=== PATIENT | male | born 1955 ===

== ENCOUNTER 2021-08-07 08:51 | Outpatient (CLI) | payer MEDICARE, OTHER, SELFPAY ==
--- NOTE | 2021-08-07 | ECHO_ITS ---
Patient Info Name: Be Coffman Age: 66 years : 1955 Gender: Male Ht: 68 in Wt: 254 lbs BSA: 2.40 m2 HR: 68 bpm BP: 135 / 92 mmHg Technical Quality: Poor Exam Date: 08/07/2021 9:18 AM Exam Location: [facility] Patient Status: Outpatient Admit Date: 08/07/2021 Staff Ordering Physician: Mauro Garcia DO Big Data Admin: Milan Wyatt RDCS, RT Attending Provider: Mauro Garcia DO Referring Physician: Jose JARVIS; Exam Type: CA echo dop color flow w con Study Info Indications R06.00 - Dyspnea, unspecified Complete two-dimensional, color flow and Doppler transthoracic echocardiogram is performed with contrast to opacify the left ventricle and to improve the deliniation of the left ventricle endocardial borders. Summary 1. Technically suboptimal study due to poor sonographic images. 2. Definity contrast administered improved wall motion interpretation. 3. Left ventricular chamber dimension is mildly enlarged. 4. Left ventricular systolic function is normal, estimated at 55-60%. 5. The left ventricular diastolic function is grade I diastolic dysfunction. 6. E/e' 5 is not elevated. 7. Dilated inferior vena cava with >50% collapse upon inspiration consistent with elevated right atrial pressure, 10 mmHg. Left Ventricle Technically suboptimal study due to poor sonographic images. Definity contrast administered improved wall motion interpretation. E/e' 5 is not elevated. Left ventricular chamber dimension is mildly enlarged. Left ventricular systolic function is normal, estimated at 55-60%. The left ventricular diastolic function is grade I diastolic dysfunction. Right Ventricle Right ventricular systolic function is normal and with normal TAPSE 2.3 cm. Right ventricular chamber dimension is normal. Left Atria Left atrial chamber dimension is normal. Right Atria Right atrial chamber dimension is normal. Aortic Valve The aortic valve is trileaflet. There is no aortic valve stenosis. There is no aortic valve regurgitation. Pulmonic Valve There is no pulmonic regurgitation. Mitral Valve There is no mitral valve stenosis. There is no mitral valve regurgitation. Tricuspid Valve There is no tricuspid valve regurgitation. Pericardium/Pleural There is no pericardial effusion. Inferior Vena Cava Dilated inferior vena cava with >50% collapse upon inspiration consistent with elevated right atrial pressure, 10 mmHg. Aorta The aortic root size at the sinus of Valsalva is normal. Left Ventricular Outflow Tract Name Value Normal LVOT 2D LVOT Diameter 2.21 cm LVOT Doppler LVOT Peak Gradient 3 mmHg LVOT Mean Gradient 2 mmHg LVOT VTI 18.48 cm LVOT VTI/AV VTI Ratio 0.71 LVOT Stroke Volume 70.99 ml LVOT CO 5.04 l/min LVOT CI 2.10 L/min/m2 Mitral Valve Name Value Normal --
[2021-08-07] MEDS: PERFLUTREN LIPID MICROSPHERES 1.5 ML VIAL DILUTED TO 10 ML TOTAL VOLUME IV PUSH (09:15)
[2021-08-07 11:12] LABS: Alanine Aminotransferase 7 U/L (4-50); Alkaline Phosphatase 111 U/L (38-126); Anion Gap 8 mmol/L (8-16); Aspartate Amino Transferase 40 U/L (17-59); Bilirubin,Total 0.6 mg/dL (0.2-1.3); Blood Urea Nitrogen 15 mg/dL (9-20); Calcium 8.7 mg/dL (8.4-10.2); Carbon Dioxide 26 mmol/L (22-30); Chloride 104 mmol/L (98-107); Cholesterol 168 mg/dL (0-200); Estimated Glomerular Filt Rate > 60; Glucose 110 mg/dL (65-110); HDL Direct 43 mg/dL; Sodium 138 mmol/L (137-145); Triglycerides 159 mg/dL (<150)
[2021-08-07 11:23] LABS: LDL Cholesterol Direct 77 mg/dL
== END 2021-08-07 08:52 | disposition home or self-care (01) ==
PROVIDERS: Visit Provider Internal Medicine Cardiovascular Disease
DX: R06.00 Dyspnea, unspecified (principal); E78.5 Hyperlipidemia, unspecified
CPT/HCPCS: 36415; 80053; 80061; C8929; Q9957

== ENCOUNTER 2021-11-09 13:35 | Emergency (ER) | payer MEDICARE, OTHER, SELFPAY ==
[2021-11-09] VITALS (19 sets, daily range): BP systolic 120–146; BP diastolic 75–94; PULSE 61–78; RESP 11–25; TEMP 36.2; O2SAT 98
--- NOTE | ~2021-11-09 | XR_ITS ---
XR chest 2V DATE: 11/09/2021 14:06 INDICATION: Central chest pain. History of sarcoidosis. TECHNIQUE: PA and lateral views COMPARISON: 08/14/2018 AP and lateral chest FINDINGS: Borderline heart size. No pulmonary vascular congestion or pleural effusion or pneumothorax . No pulmonary infiltrate or consolidation. There is chronic moderate elevation of the right diaphrag m. Degenerative spurring of the thoracic spine. IMPRESSION: Chronic moderate elevation right diaphragm No active pulmonary disease Reviewed, dictated and finalized at location A.
--- NOTE | ~2021-11-09 | CT_ITS ---
EXAMINATION: CTA chest PE protocol DATE: 11/09/2021 15:58 INDICATION: cp, sob, elevated dimer TECHNIQUE: Computed tomography angiography (CTA) of the chest was performed with 100 mL Omnipaque-350 intravenous contrast timed to evaluate the pulmonary arteries. Coronal maximum intensity projection 3D-reconstructions were created by the technologist. The dose-length product (DLP) was 833.13 mGy-cm. Automated exposure control and iterative reconstruction technique were employed. COMPARISON: X-ray chest, same date. CT T-spine 08/14/2018. FINDINGS: Study quality: . Pulmonary arteries: No pulmonary emboli detected. Thoracic aorta: Normal. Lung parenchyma and airways: Right upper lung scarring, unchanged. Bibasilar atelectasis. Thoracic inlet, axillae and chest wall: Bilateral gynecomastia. Mediastinum: Normal. Heart and pericardium: Normal. Coronary artery calcifications: Absent. Pleura: Unremarkable. Upper abdomen: No significant finding. Bones: No acute osseous finding. IMPRESSION: No CT evidence of acute pulmonary embolus. Reviewed, dictated and finalized at location K.
--- NOTE | 2021-11-09 13:36 | ECG_ITS ---
Measurements Intervals [place] Rate: 76 P: 21 ME: 145 QRS: -10 QRSD: 101 T: -1 QT: 358 QTc: 404 Interpretive Statements SINUS RHYTHM LOW QRS VOLTAGE IN PRECORDIAL LEADS BORDERLINE ST-T WAVE ABNORMALITY- INFERIOR LEADS BASELINE ARTIFACT- I, II, AVR, AVF BORDERLINE ECG Electronically Signed On 11-09-2021 15:28:29 CDT by Mauro Garcia D.O.
[2021-11-09 14:04] LABS: Basophils Absolute Auto 0.1 K/mm3 (0.0-0.1); Basophils Percent Auto 0.8 % (0.2-1.2); Eosinophils Absolute Auto 0.4 K/mm3 (0-0.3); Eosinophils Percent Auto 5.9 % (0-4.4); Hematocrit 45.5 % (42.0-52.0); Hemoglobin 15.8 g/dL (14.0-18.0); Immature Granulocyte Absolute 0.01 K/mm3 (0.00-0.031); Immature Granulocyte Percent A 0.1 % (0-0.5); Lymphocytes Absolute Auto 0.98 K/mm3 (0.9-3.2); Lymphocytes Percent Auto 13.1 % (18.3-44.2); Mean Corpuscular HGB Conc 34.7 g/dl (32-36); Mean Corpuscular Hemoglobin 32.4 pg (26-34); Mean Corpuscular Volume 93.4 fl (80-100); Mean Platelet Volume 8.4 fl (7.4-10.4); Monocytes Absolute Auto 0.9 K/mm3 (0.1-0.6); Monocytes Percent Auto 12.1 % (2.6-8.5); Neutrophils Absolute Auto 5.1 K/mm3 (1.3-6.7); Platelet Count Result 176 k/mm3 (150-375); Red Blood Count 4.87 M/mm3 (4.6-6.20); Red Cell Distribution Width 12.2 % (11.5-14.5); White Blood Count 7.5 K/mm3 (4.5-10.0)
[2021-11-09 14:14] LABS: Alanine Aminotransferase 9 U/L (6-50); Albumin Level 4.3 g/dL (3.5-5.1); Alkaline Phosphatase 95 U/L (38-126); Anion Gap 8 mmol/L (8-16); Aspartate Amino Transferase 35 U/L (17-59); Bilirubin,Total 0.8 mg/dL (0.2-1.3); Blood Urea Nitrogen 21 mg/dL (9-20); Calcium 9.1 mg/dL (8.4-10.2); Carbon Dioxide 26 mmol/L (22-30); Chloride 104 mmol/L (98-107); Estimated CRCL calculation 77 ml/min; Estimated Glomerular Filt Rate > 60; Glucose 112 mg/dL (65-110); Lipase 106 U/L (23-300); Potassium 3.8 mmol/L (3.4-5.0); Sodium 138 mmol/L (137-145)
[2021-11-09 14:15] LABS: INR 1.1; Prothrombin Time 13.9 Seconds (11.1-14.7)
[2021-11-09 14:16] LABS: Partial Thromboplastin Time 29.7 SECONDS (22.3-36.8)
[2021-11-09 14:26] LABS: Troponin I < 0.012 ng/mL (0.000-0.034)
--- NOTE | 2021-11-09 15:00 | ED.CHESTPAIN ---
HPI - Chest Pain General Chief Complaint: Chest Pain <Lupe Frankel PA-C - Last Filed: 11/09/21 17:34> Stated Complaint: CP <Lupe Frankel PA-C - Last Filed: 11/09/21 17:34> Time Seen by Provider: 11/09/21 14:03 <Lupe Frankel PA-C - Last Filed: 11/09/21 17:34> Source: patient <Lupe Frankel PA-C - Last Filed: 11/09/21 17:34> Mode of arrival: ambulatory <CAMERON Kasper Last Filed: 11/09/21 17:34> Limitations: no limitations <Lupe Frankel PA-C - Last Filed: 11/09/21 17:34> History of Present Illness HPI narrative: This is a 66 year old male that presents to the ER for chest pressure noted since yesterday. Associated with some shortness of breath. Also reports some congestion and cough. Reports he did receive his COVID vaccine about a week ago. Denies fever or lower extremity edema. <Lupe Frankel PA-C - Last Filed: 11/09/21 17:34> Related Data Home Medications: Home Medications Medication Instructions Recorded Confirmed ascorbic acid (vitamin C) 1,000 mg 1 gm PO DAILY 06/10/19 07/17/21 tablet aspirin 81 mg tablet,delayed 81 mg PO DAILY 06/10/19 07/17/21 release (Adult Low Dose Aspirin) atenolol 50 mg tablet 50 mg PO DAILY 06/10/19 07/17/21 gabapentin 300 mg capsule 300 mg PO BID 06/10/19 07/17/21 glucosamine 750 mk-iodoeg-qnn 1 tablet PO 06/10/19 07/17/21 625 mg-D3 1,000 colm-U-xha-Bosw tablet (Glucosamine-Chondroitin Complex) melatonin 10 mg capsule PO DAILY 06/10/19 07/17/21 multivitamin 1 tablet PO DAILY 06/10/19 07/17/21 omega-3 fatty acids 1,000 mg 1,000 mg PO DAILY 06/10/19 07/17/21 capsule (Fish Oil Concentrate) pantoprazole 20 mg tablet,delayed 20 mg PO DAILY 06/10/19 07/17/21 release simvastatin 20 mg tablet 20 mg PO DAILY 06/10/19 07/17/21 venlafaxine 75 mg tablet 75 mg PO DAILY 06/10/19 07/17/21 donepezil 5 mg tablet 5 mg PO ONCE 06/17/19 07/17/21 flaxseed oil-vitamin E 1,000 mg-1 cap PO 06/17/19 07/17/21 unit capsule levothyroxine 25 mcg tablet 25 mcg PO DAILY 06/17/19 07/17/21 mirabegron 25 mg tablet,extended 25 mg PO DAILY 06/17/19 07/17/21 release 24 hr (Myrbetriq) promethazine 25 mg tablet 25 mg PO QID 06/17/19 07/17/21 vitamin E (dl, acetate) 180 mg 400 unit PO DAILY 06/17/19 07/17/21 (400 unit) capsule clonazepam 0.5 mg tablet 2 mg PO .hs 06/15/20 07/17/21 carbidopa 25 mg-levodopa 250 mg 1 tablet PO QHS 12/13/20 07/17/21 tablet <Lupe Frankel PA-C - Last Filed: 11/09/21 17:34> Allergies/Adverse Reactions: Allergies Allergy/AdvReac Type Severity Reaction Status Date / Time No Known Allergies Allergy Verified 11/09/21 14:00 <Lupe Frankel PA-C - Last Filed: 11/09/21 17:34> Review of Systems Review of Systems: CONSTITUTIONAL: Denies fever ENT: Reports congestion CARDIOVASCULAR: Reports chest pressure. Denies chest pain, or edema. RESPIRATORY: Reports cough and dyspnea. <Lupe Frankel PA-C - Last Filed: 11/09/21 17:34> All systems reviewed & are unremarkable except as noted in HPI and below <Lupe Frankel PA-C - Last Filed: 11/09/21 17:34> [facility] Past Medical History Medical History: Medical History Chest pain in adult Diabetes 1.5, managed as type 2 Dyslipidemia Essential hypertension <Lupe Frankel PA-C - Last Filed: 11/09/21 17:34> Surgical History Surgical History: Surgical History History of appendectomy History of back surgery History of hemorrhoidectomy History of hernia repair History of lithotripsy <Lupe Frankel PA-C - Last Filed: 11/09/21 17:34> Family History Family History: Family History Father Patient's father is , Onset Age: 78 Mother Family history of malignant neoplasm, Onset Age: 83 <CAMERON Kasper L
[2021-11-09 15:11] LABS: Creatine Kinase 35 U/L (55-170)
[2021-11-09 15:17] LABS: D Dimer 0.91 ug/mL (<0.48)
[2021-11-09 15:21] LABS: NT Pro B Type Natriuretic Pept 15 pg/mL (5-100)
[2021-11-09] MEDS: SODIUM CHLORIDE 0.9% IV 500 ML 999 ML IV CONT (15:30)
[2021-11-09 15:54] LABS: SARS-CoV-2 RNA PCR Negative
[2021-11-09 17:10] LABS: Troponin I < 0.012 ng/mL (0.000-0.034)
== END 2021-11-09 17:49 | disposition home or self-care (01) ==
PROVIDERS: Physician Assistant; Emergency Provider Emergency Medicine; PCP Student in an Organized Health Care Education/Training Program
DX: R07.89 Other chest pain (principal); Z20.822 Contact with and (suspected) exposure to COVID-19; E13.9 Other specified diabetes mellitus without complications; E78.5 Hyperlipidemia, unspecified; I10 Essential (primary) hypertension; Z79.82 Long term (current) use of aspirin; R06.02 Shortness of breath
CPT/HCPCS: 36415; 71046; 71275; 80053; 82550; 83690; 83880; 84484; 85025; 85380; 85610; 85730; 93005; 96360; 99284; C9803; J7040; Q9967; U0003; U0005

== ENCOUNTER → 2022-06-24 10:58 | Outpatient (CLI) | payer MEDICARE, OTHER, SELFPAY ==
--- NOTE | ~2022-06-24 | CT_ITS ---
Non-contrast CT scan of the Abdomen and Pelvis Clinical indication: Hematuria Technique: 2.5 mm axial scans were obtained through the abdomen and pelvis without intravenous or or al contrast. Dose reduction technique was used on this scan by utilizing automated exposure control a nd iterative reconstruction technique. The dose-length product (DLP) was 1029.51 mGy-cm. Findings: Images through the lung bases reveal no abnormalities. Small bilateral nonobstructing renal stones are present, measuring 2-3 mm in diameter. No ureteral st one or hydronephrosis on either side. The liver, spleen, pancreas, gallbladder, and adrenals appear normal. There is no aortic aneurysm. There is no evidence of bowel obstruction. Images through the pelvis were performed. There is no evidence of ascites or lymphadenopathy. Urinary bladder unremarkable. Prostate gland and seminal vesicles are unremarkable. Impression: Small bilateral nonobstructing renal stones, as detailed above. No ureteral stone or hydronephrosis. Reviewed, dictated and finalized at [facility]. YNAECOLOGIST Impression: Small bilateral nonobstructing renal stones, as detailed above. No ureteral sto ne or hydronephrosis.
== END ==
PROVIDERS: PCP Student in an Organized Health Care Education/Training Program; Visit Provider Internal Medicine
DX: R31.0 Gross hematuria (principal); N20.0 Calculus of kidney
CPT/HCPCS: 74176

== ENCOUNTER → 2022-07-09 14:18 | Outpatient (CLI) | payer MEDICARE, OTHER, SELFPAY ==
--- NOTE | ~2022-07-09 | DEXA_ITS ---
Bone Density Report Name: RAYMOND SUAREZ Age: 67 Sex: Male Ethnicity: White Date of : 1955 Indication: history of glucocorticoids; prior fracture; Referring Provider: Ruy, Abimael Study: Bone densitometry was performed. Exam Date: July 09, 2022 Accession number: [id number] Bone Density: Region BMD T-score Z-score Classification AP Spine (L2, L3, L4) 1.219 0.9 1.8 Normal Femoral Neck (Left) 0.793 -1.0 0.1 Normal Total Hip (Left) 1.142 0.7 1.3 Normal Femoral Neck (Right) 0.731 -1.5 -0.3 Osteopenia Total Hip (Right) 1.080 0.3 0.9 Normal Total Hip Mean 1.111 0.5 1.1 Normal World Health Organization criteria for BMD impression classify patients as: Normal (T-score at or above -1.0), Osteopenia (T-score between -1.0 and -2.5), or Osteoporosis (T-score at or below -2.5). 10-year Fracture Risk: FRAX not reported because: Prior hip or vertebral fracture Previous Exams: Region Exam Age BMD T-score BMD Change BMD Change Date g/cm2 vs Baseline vs Previous AP Spine(L2, L3, L4) 07/09/2022 67 1.219 0.9 0.518* 0.036* 08/15/2016 61 1.183 0.6 0.483* 0.071* 03/03/2013 57 1.112 0.0 0.412* 0.217 03/02/2009 53 0.895 -2.0 0.195 0.082 11/01/2007 52 0.813 -2.7 0.113* 0.030 09/22/2006 51 0.783 -3.0 0.083 0.008 09/19/2005 50 0.775 -3.1 0.075 0.075 10/25/2004 49 0.700 -3.8 Total Hip(Left) 07/09/2022 67 1.142 0.7 0.169* 0.018 08/15/2016 61 1.124 0.6 0.150* 0.047* 03/03/2013 57 1.077 0.3 0.103* 0.043* 03/02/2009 53 1.034 0.0 0.060* 0.061* 11/01/2007 52 0.973 -0.4 -0.001 -0.027 09/22/2006 51 0.999 -0.2 0.026 -0.017 09/19/2005 50 1.016 -0.1 0.042 0.042 10/25/2004 49 0.974 -0.4 Total Hip(Right) 07/09/2022 67 1.080 0.3 0.126* -0.015 08/15/2016 61 1.095 0.4 0.141* 0.071 03/03/2013 57 1.024 -0.1 0.069 -0.003 03/02/2009 53 1.027 0.0 0.072* 0.086* 11/01/2007 52 0.941 -0.6 -0.014 0.019 09/22/2006 51 0.921 -0.7 -0.033 -0.021 09/19/2005 50 0.943 -0.6 -0.012 -0.012 10/25/2004 49 0.955 -0.5 *Denotes significance at 95% confidence level, LSC for AP Spine = 0.022 g/cm2, LSC f
== END ==
PROVIDERS: PCP Student in an Organized Health Care Education/Training Program; Visit Provider Student in an Organized Health Care Education/Training Program
DX: M81.8 Other osteoporosis without current pathological fracture (principal); M85.851 Other specified disorders of bone density and structure, right thigh
CPT/HCPCS: 77080

== ENCOUNTER → 2022-08-06 11:34 | Outpatient (CLI) | payer MEDICARE, OTHER, SELFPAY ==
--- NOTE | ~2022-08-06 | XR_ITS ---
XR abdomen/kub 1V 08/06/2022 11:50 Indication: Renal stones Procedure: KUB Comparison: No prior studies for comparison. Findings: Nonobstructive bowel gas pattern. No abnormal calcifications. Moderate lumbar spondylosis. Impression: 1: No acute abdominal abnormality. Reviewed, dictated and finalized at location B. Impression: 1: No acute abdominal abnormality.
== END ==
PROVIDERS: PCP Student in an Organized Health Care Education/Training Program; Visit Provider Urology
DX: N20.0 Calculus of kidney (principal)
CPT/HCPCS: 74018